=== PATIENT | male | born 1950 | race Caucasian/White ===

== ENCOUNTER 2017-08-07 12:17 | Day surgery (SDC) | payer OTHER ==
[~2017-08-07] VITALS: Ht 180.3 cm; Wt 100.7 kg
[~2017-08-07 12:17] MED LIST: OXYACE5T PO; RXCODACET PO; TOBR.3OPSO OP
[2017-08-07] MEDS ORDERED: LOSA50 PO (13:04)
[2017-08-07] MEDS ORDERED: CHOL10002 PO (13:04)
[2017-08-07] MEDS ORDERED: IBUP400 PO (13:05)
[2017-08-07] MEDS ORDERED: Calcium 600-D1 EACH (13:05)
== END 2017-08-07 16:07 | disposition home or self-care (01) ==
LOC: ORSCSDS 12:17
PROVIDERS: Orthopaedic Surgery
PROC: 0SBC4ZZ Excision of Right Knee Joint, Percutaneous Endoscopic Approach (ICD-10-PCS; principal; 2017-08-07 13:30)
DX: M23.300 Other meniscus derangements, unspecified lateral meniscus, right knee (principal); I10 Essential (primary) hypertension; E78.5 Hyperlipidemia, unspecified
CPT/HCPCS: J0171; J0690; J2250; J3010

== ENCOUNTER → 2017-08-21 | Outpatient (CLI) | payer OTHER ==
[~2017-08-21] MED LIST changes: +CHOL10002 PO; +Calcium 600-D1 EACH; +IBUP400 PO; +LOSA50 PO
[2017-08-21 12:09] LABS: BODY FLUID RBC 0.004 (0-0); RBC Count, Synovial Fluid 4000 /mm3 (0-0); WBC Count, Synovial Fluid 6578 /mm3 (0-180)
[2017-08-21 12:57] LABS: Body Fluid Crystals NEG (NEGATIVE)
[2017-08-21 13:16] LABS: Lymphs, Synovial Fluid 16 % (0-15); Monocytes/Macrophages, Synovia 40 % (0-65); Neutrophils, Synovial Fluid 44 % (0-24)
[2017-08-21 13:17] LABS: Appearance, Synovial Fluid Cloudy (Clear); Color, Synovial Fluid Yellow (None-P Yel)
[2017-08-21 13:19] LABS: Crystals, Synovial Fluid Not Seen (Not Seen)
== END | disposition home or self-care (01) ==
LOC: LAB SHORT 10:41 → LAB 10:41
PROVIDERS: Orthopaedic Surgery
DX: M25.40 Effusion, unspecified joint (principal)
CPT/HCPCS: 87070; 87075; 87205; 89051; 89060

== ENCOUNTER 2019-06-16 07:10 | Day surgery (SDC) | payer OTHER ==
[~2019-06-16] VITALS: Ht 180.3 cm; Wt 101.6 kg
[~2019-06-16 07:10] MED LIST changes: +Saw Palmetto160 MG PO
== END 2019-06-16 09:31 | disposition home or self-care (01) ==
LOC: ORSCSDS 07:10
PROVIDERS: Surgery
PROC: 0DBK8ZX Excision of Ascending Colon, Via Natural or Artificial Opening Endoscopic, Diagnostic (ICD-10-PCS; principal; 2019-06-16 08:30)
DX: Z12.11 Encounter for screening for malignant neoplasm of colon (principal); D12.2 Benign neoplasm of ascending colon; K57.30 Diverticulosis of large intestine without perforation or abscess without bleeding; K64.8 Other hemorrhoids; Z86.010 Personal history of colon polyps; I10 Essential (primary) hypertension; E78.5 Hyperlipidemia, unspecified; Z79.899 Other long term (current) drug therapy
CPT/HCPCS: 88305; J2704; J7120

== ENCOUNTER 2023-04-22 10:00 | Emergency (ER) | payer OTHER ==
[~2023-04-22] VITALS: Ht 180.3 cm; Wt 97.5 kg
[2023-04-22 10:10] VITALS: BP 134/81
[2023-04-22] MEDS ORDERED: CARAFATE1 GM/10 M1 PO (11:48)
[2023-04-22] MEDS ORDERED: TAMSULOSIN HCL0.4 M1 PO (12:10)
== END 2023-04-22 12:08 | disposition home or self-care (01) ==
LOC: ER 10:00
DX: R13.10 Dysphagia, unspecified (principal); I10 Essential (primary) hypertension; Z79.899 Other long term (current) drug therapy
CPT/HCPCS: 99282

== ENCOUNTER → 2024-01-28 | Outpatient (CLI) | payer OTHER ==
[~2024-01-28] MED LIST changes: +CARAFATE1 GM/10 M1 PO; +TAMSULOSIN HCL0.4 M1 PO
== END | disposition home or self-care (01) ==
LOC: LAB SHORT 16:34 → LAB 16:34
DX: L02.411 Cutaneous abscess of right axilla (principal)
CPT/HCPCS: 87070; 87075; 87077; 87147; 87186; 87205

== ENCOUNTER → 2024-03-10 | Outpatient (CLI) | payer OTHER | LOC: LAB 15:58 → LAB SHORT 15:58 | DX: L02.411 Cutaneous abscess of right axilla (principal) | CPT/HCPCS: 87070; 87075; 87077; 87186; 87205 ==

== ENCOUNTER 2024-08-25 11:48 | Day surgery (SDC) | payer OTHER ==
[~2024-08-25] VITALS: Ht 180.3 cm; Wt 99.4 kg
[2024-08-25] MEDS ORDERED: ESCITALOPRAM OXA5 MG (12:44)
[2024-08-25] MEDS ORDERED: PANTOPRAZOLE SO40 M2 (12:44)
[2024-08-25] MEDS ORDERED: Cialis5 MG (12:45)
[2024-08-25] MEDS ORDERED: LOSA50 (12:45)
[2024-08-25] MEDS ORDERED: Lactated Ringer's 1,000 ML IV ONE ×2 (13:05→13:30)
[2024-08-25] MEDS ORDERED: propofoL 50 ML IV ONE (13:30)
[2024-08-25 14:50] VITALS: BP 122/80
== END 2024-08-25 14:40 | disposition home or self-care (01) ==
LOC: ORSCSDS 11:48
PROVIDERS: Surgery
PROC: 0DBK8ZX Excision of Ascending Colon, Via Natural or Artificial Opening Endoscopic, Diagnostic (ICD-10-PCS; principal; 2024-08-25 13:30)
PROC: 0DBH8ZX Excision of Cecum, Via Natural or Artificial Opening Endoscopic, Diagnostic (ICD-10-PCS; principal; 2024-08-25 13:30)
DX: Z12.11 Encounter for screening for malignant neoplasm of colon (principal); Z86.0101 Personal history of adenomatous and serrated colon polyps; D12.2 Benign neoplasm of ascending colon; D12.0 Benign neoplasm of cecum; K57.30 Diverticulosis of large intestine without perforation or abscess without bleeding; I47.10 Supraventricular tachycardia, unspecified; E78.5 Hyperlipidemia, unspecified; I10 Essential (primary) hypertension; E66.9 Obesity, unspecified; Z68.31 Body mass index [BMI] 31.0-31.9, adult; Z79.899 Other long term (current) drug therapy
CPT/HCPCS: 88305; J2704; J7120